=== PATIENT | female | born 1995 | race Asian ===

== ENCOUNTER 2025-03-01 09:10 | Emergency (ER) | payer OTHER ==
[~2025-03-01] VITALS: Ht 170.2 cm; Wt 61.2 kg
[2025-03-01] MEDS ORDERED: PREN1CHW6 PO (09:39)
[2025-03-01 10:38] LABS: BASO # 0.0 10^3/uL (0.0-0.2); BASO % 0.3 % (0.0-1.0); EOS # 0.1 10^3/uL (0.0-0.5); EOS % 0.8 % (0.0-3.0); LYMPH # 1.8 10^3/uL (1.5-5.0); LYMPH % 19.1 % (24.0-44.0); MONO # 0.5 10^3/uL (0.0-0.8); MONO % 5.1 % (2.0-8.0); NEUTROPHILS # 7.1 10^3/uL (1.5-8.5); NEUTROPHILS % 74.3 % (36.0-66.0); PLATELET COUNT, AUTOMATED 253 10^3/uL (150-450)
[2025-03-01 10:48] LABS: INR 0.9
[2025-03-01 11:13] LABS: CK-MB VALUE MASS 2.8 NG/ML (<3.6)
[2025-03-01 11:15] LABS: ALT/SGPT 20 U/L (7.0-40); AST/SGOT 24 U/L (<34); CALCIUM LEVEL 8.8 MG/DL (8.5-10.1); CARBON DIOXIDE LEVEL 26 MMOL/L (20-31); CHLORIDE LEVEL 105 MMOL/L (98-107); CPK CREATINE PHOSPHOKINASE 231 U/L (34-145); CREATININE FOR GFR 0.73 MG/DL (0.55-1.30); GLOMERULAR FILTRATION RATE > 90.0 (>60); MB/CK RELATIVE INDEX 1.21 (< OR =4); POTASSIUM SERUM 3.9 MMOL/L (3.5-5.1); SODIUM LEVEL 143 MMOL/L (136-145)
[2025-03-01 11:17] LABS: THYROXINE (T4) 7.4 UG/DL (4.5-10.9)
[2025-03-01] MEDS: NS (Normal Saline) 0.9% 1,000 ML IV ONE (11:22)
[2025-03-01] MEDS ORDERED: ISOVUE-370 76% 100 ML VIAL As Ordered ONE (12:04)
[2025-03-01] MEDS ORDERED: HOLTER MONITOR XX (13:22)
[2025-03-01 13:25] VITALS: BP 108/54; O2SAT 100
[2025-03-01 13:29] VITALS: TEMP 98
== END 2025-03-01 13:36 | disposition home or self-care (01) ==
LOC: M ED 09:10 → EDBD 09:10 → M ED 13:36
DX: R00.2 Palpitations (principal); Z95.818 Presence of other cardiac implants and grafts; Z79.899 Other long term (current) drug therapy
CPT/HCPCS: 71045; 71275; 80047; 80048; 80076; 82550; 82553; 84436; 84443; 84484; 84702; 85025; 85610; 93005; 93041; 94760; 96360; 96361; 99285; Q9967

== ENCOUNTER 2025-03-26 12:41 | Emergency (ER) | payer OTHER ==
[~2025-03-26] VITALS: Ht 203.2 cm; Wt 60.9 kg
[~2025-03-26 12:41] MED LIST: HOLTER MONITOR XX; PREN1CHW6 PO
[2025-03-26 13:35] LABS: BASO # 0.0 10^3/uL (0.0-0.2); BASO % 0.7 % (0.0-1.0); EOS # 0.2 10^3/uL (0.0-0.5); EOS % 2.7 % (0.0-3.0); LYMPH # 2.6 10^3/uL (1.5-5.0); LYMPH % 45.9 % (24.0-44.0); MONO # 0.3 10^3/uL (0.0-0.8); MONO % 5.8 % (2.0-8.0); NEUTROPHILS # 2.5 10^3/uL (1.5-8.5); NEUTROPHILS % 44.5 % (36.0-66.0); PLATELET COUNT, AUTOMATED 257 10^3/uL (150-450)
[2025-03-26 14:00] LABS: ALT/SGPT 19.0 U/L (7.0-40); AST/SGOT 27.0 U/L (<34); CK-MB VALUE MASS 2.0 NG/ML (<3.6)
[2025-03-26 14:05] LABS: CPK CREATINE PHOSPHOKINASE 304.0 U/L (34-145); MB/CK RELATIVE INDEX 0.65 (< OR =4)
[2025-03-26 15:04] LABS: INR 0.95
[2025-03-26 16:25] LABS: CK-MB VALUE MASS 1.8 NG/ML (<3.6)
[2025-03-26 16:29] LABS: CPK CREATINE PHOSPHOKINASE 260.0 U/L (34-145); MB/CK RELATIVE INDEX 0.69 (< OR =4)
[2025-03-26] MEDS: NS (Normal Saline) 0.9% 1,000 ML IV ONE (16:54)
[2025-03-26 18:28] VITALS: BP 100/57; TEMP 97.8; O2SAT 99
== END 2025-03-26 18:32 | disposition home or self-care (01) ==
LOC: M ED 12:41
DX: R00.2 Palpitations (principal); I45.10 Unspecified right bundle-branch block; Z79.899 Other long term (current) drug therapy

== ENCOUNTER 2025-05-15 12:29 | Emergency (ER) | payer OTHER ==
[~2025-05-15] VITALS: Ht 170.2 cm; Wt 63.7 kg
[2025-05-15 12:35] VITALS: TEMP 97.8
[2025-05-15 13:37] LABS: BASO # 0.0 10^3/uL (0.0-0.2); BASO % 0.5 % (0.0-1.0); EOS # 0.3 10^3/uL (0.0-0.5); EOS % 4.4 % (0.0-3.0); LYMPH # 2.9 10^3/uL (1.5-5.0); LYMPH % 51.8 % (24.0-44.0); MONO # 0.5 10^3/uL (0.0-0.8); MONO % 8.1 % (2.0-8.0); NEUTROPHILS # 2.0 10^3/uL (1.5-8.5); NEUTROPHILS % 34.8 % (36.0-66.0); PLATELET COUNT, AUTOMATED 234 10^3/uL (150-450)
[2025-05-15 13:41] LABS: URINE PREG TEST NEGATIVE (NEGATIVE)
[2025-05-15 13:46] LABS: KETONE, URINE AUTO RFX NEGATIVE (NEGATIVE); LEUKOCYTE ESTERASE UR AUTO RFX NEGATIVE (NEGATIVE); MUCUS, URINE RFX SMALL (NEGATIVE); NITRITE, URINE AUTO RFX NEGATIVE (NEGATIVE); RBC, URINE AUTO RFX 2 /HPF (0-3); SQUAM EPITHELIAL CELL UR AURFX 4 /HPF (0-6); WBC, URINE AUTO RFX 1 /HPF (0-3)
[2025-05-15 13:50] LABS: INR 0.92
[2025-05-15 14:06] LABS: ALT/SGPT 19 U/L (7.0-40); AST/SGOT 18 U/L (<34); CALCIUM LEVEL 9.1 MG/DL (8.5-10.1); CARBON DIOXIDE LEVEL 30 MMOL/L (20-31); CHLORIDE LEVEL 103 MMOL/L (98-107); CREATININE FOR GFR 0.81 MG/DL (0.55-1.30); GLOMERULAR FILTRATION RATE > 90.0 (>60); POTASSIUM SERUM 4.0 MMOL/L (3.5-5.1); SODIUM LEVEL 140 MMOL/L (136-145)
[2025-05-15] MEDS ORDERED: SIME1CAP4 PO (17:14)
[2025-05-15] MEDS ORDERED: HYDR26CR TOP (17:14)
[2025-05-15] MEDS ORDERED: COLA100C5 PO (17:14)
[2025-05-15 17:15] VITALS: BP 100/56; O2SAT 100
== END 2025-05-15 17:57 | disposition home or self-care (01) ==
LOC: M ED 12:29
DX: K64.8 Other hemorrhoids (principal); E11.9 Type 2 diabetes mellitus without complications; Z79.899 Other long term (current) drug therapy

== ENCOUNTER 2025-06-25 18:55 | Emergency (ER) | payer OTHER ==
[~2025-06-25] VITALS: Ht 170.2 cm; Wt 63.5 kg
[~2025-06-25 18:55] MED LIST changes: +COLA100C5 PO; +HYDR26CR TOP; +SIME1CAP4 PO
[2025-06-25] MEDS ORDERED: METO1TAB87 PO (19:01)
[2025-06-25 19:26] LABS: BASO # 0.0 10^3/uL (0.0-0.2); BASO % 0.3 % (0.0-1.0); EOS # 0.1 10^3/uL (0.0-0.5); EOS % 0.9 % (0.0-3.0); LYMPH # 3.2 10^3/uL (1.5-5.0); LYMPH % 32.2 % (24.0-44.0); MONO # 0.5 10^3/uL (0.0-0.8); MONO % 4.8 % (2.0-8.0); NEUTROPHILS # 6.1 10^3/uL (1.5-8.5); NEUTROPHILS % 61.5 % (36.0-66.0); PLATELET COUNT, AUTOMATED 270 10^3/uL (150-450)
[2025-06-25 19:29] LABS: KETONE, URINE AUTO RFX TRACE mg/dL (NEGATIVE); LEUKOCYTE ESTERASE UR AUTO RFX NEGATIVE (NEGATIVE); MUCUS, URINE RFX SMALL (NEGATIVE); NITRITE, URINE AUTO RFX NEGATIVE (NEGATIVE); RBC, URINE AUTO RFX 0 /HPF (0-3); SQUAM EPITHELIAL CELL UR AURFX 0 /HPF (0-6); WBC, URINE AUTO RFX 0 /HPF (0-3)
[2025-06-25] MEDS: NS (Normal Saline) 0.9% 1,000 ML IV ONE (19:34)
[2025-06-25] MEDS: ONDANSETRON 4MG/2ML VIAL IV ONE (19:34)
[2025-06-25] MEDS ORDERED: ISOVUE-370 76% 100 ML VIAL As Ordered ONE (19:40)
[2025-06-25 19:47] LABS: HCG, SERUM QUALITATIVE NEGATIVE (NEGATIVE)
[2025-06-25 19:50] LABS: ALT/SGPT 33 U/L (7.0-40); AST/SGOT 31 U/L (<34)
[2025-06-25] MEDS ORDERED: ONDA-282 PO (20:49)
[2025-06-25] MEDS: KETOROLAC 30 MG/ML 1 ML VIAL IV ONE (21:00)
[2025-06-25] MEDS: ONDANSETRON 4MG ORAL DISINTEGRATING TAB PO ONE (21:17)
[2025-06-25 21:19] VITALS: BP 105/56; TEMP 97.8; O2SAT 100
== END 2025-06-25 21:23 | disposition home or self-care (01) ==
LOC: M ED 18:55
DX: A09 Infectious gastroenteritis and colitis, unspecified (principal); A05.9 Bacterial foodborne intoxication, unspecified; K27.9 Peptic ulcer, site unspecified, unspecified as acute or chronic, without hemorrhage or perforation; Z79.899 Other long term (current) drug therapy
CPT/HCPCS: 74177; 80047; 80076; 81001; 83690; 84703; 85025; 96361; 96374; 96375; 99284; J1885; J2405; Q9967

== ENCOUNTER → 2025-07-14 | Outpatient (CLI) | payer OTHER ==
[~2025-07-14] MED LIST changes: +APRITAB PO; +METO1TAB87 PO; +ONDA-282 PO
[2025-07-14 11:41] LABS: CALCIUM LEVEL 8.9 MG/DL (8.5-10.1); CARBON DIOXIDE LEVEL 28 MMOL/L (20-31); CHLORIDE LEVEL 104 MMOL/L (98-107); CREATININE FOR GFR 0.63 MG/DL (0.55-1.30); GLOMERULAR FILTRATION RATE > 90.0 (>60); POTASSIUM SERUM 3.7 MMOL/L (3.5-5.1); SODIUM LEVEL 140 MMOL/L (136-145)
[2025-07-14 11:45] LABS: CORTISOL AM 1.3 UG/DL (4.3-22.4)
[2025-07-19 21:28] LABS: ALDOS/RENIN RATIO 0.6 Ratio (0.9-28.9); ALDOSTERONE LC 1 ng/dL; RENIN ACTIVITY 1.63 ng/mL/h (0.25-5.82)
[2025-07-20 08:12] LABS: METANEPHRINE PLASMA < 25 pg/mL (<=57); NORMETANEPHRINE PLASMA 56 pg/mL (<=148); TOTAL FREE 56 pg/mL (<=205)
== END ==
LOC: M WUC 08:31 → M LAB 08:31
PROVIDERS: ATTEND Nurse Practitioner Family
DX: D35.01 Benign neoplasm of right adrenal gland (principal)

== ENCOUNTER 2025-07-24 09:45 | Emergency (ER) | payer OTHER ==
[~2025-07-24] VITALS: Ht 170.2 cm; Wt 61.6 kg
[~2025-07-24 09:45] MED LIST changes: -APRITAB PO
[2025-07-24] MEDS ORDERED: APRITAB PO (09:53)
[2025-07-24 11:52] VITALS: BP 108/61; TEMP 98; O2SAT 100
== END 2025-07-24 12:10 | disposition home or self-care (01) ==
LOC: M ED 09:45
DX: S30.0XXA Contusion of lower back and pelvis, initial encounter (principal); W00.0XXA Fall on same level due to ice and snow, initial encounter; I10 Essential (primary) hypertension; Z79.899 Other long term (current) drug therapy; Y92.9 Unspecified place or not applicable; Y93.89 Activity, other specified; Y99.9 Unspecified external cause status